=== PATIENT | male | born 1985 | race Caucasian/White ===

== ENCOUNTER 2017-11-14 10:26 | Emergency (ER) | payer OTHER ==
[2017-11-14] MEDS ORDERED: PROPARACAINE 0.5% OPHTH DROPS 15 ML BTL BOTH EYES STA (11:27)
[2017-11-14] MEDS ORDERED: CIPROFLOXACIN 0.3% OPHTH SOLN 5 ML BTL BOTH EYES STA (11:28)
--- NOTE | 2017-11-14 12:15 | ED ---
Eye Problem HPI - General Chief complaint: Eye Problems Stated complaint: Poss [employer] Eye Time Seen by Provider: 11/14/17 11:00 Source: patient, RN notes reviewed, old records reviewed Mode of arrival: ambulatory Limitations: no limitations - History of Present Illness Initial comments: This is a 32 year old female with CC of left eye irritaiton and drainage. Patient reports that he wears contacts, and typically over wears them. 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 HE relates that he has been having irritaiton for 2 days. He has not been wearing contacts since then. Patient denies visual changes, but states that it is slightly blurry due to drainage. Denies pain with bright lights. - Related Data Home Medications Medication Instructions Recorded Confirmed Multivitamins, Thera [Multivitamin 1 tab PO DAILY 11/14/17 11/14/17 (formulary)] Previous Rx's Medication Instructions Recorded Ciprofloxacin Ophth Soln [Cipro 1 drops LEFT EYE Q4HR #1 bottle 11/14/17 Ophth Soln] Allergies Allergy/AdvReac Type Severity Reaction Status Date / Time No Known Allergies Allergy Verified 11/14/17 10:58 Review of Systems ROS Statement: Those systems with pertinent positive or pertinent negative responses have been documented in the HPI. ROS Other: All systems not noted in ROS Statement are negative. Constitutional: Reports: fever. Denies: chills Eyes: Reports: eye pain, eye discharge (left) ENT: Denies: throat pain Respiratory: Denies: cough, dyspnea Cardiovascular: Denies: chest pain Endocrine: Denies: fatigue Genitourinary: Denies: dysuria Musculoskeletal: Denies: back pain Skin: Denies: rash Neurological: Denies: headache Psychiatric: Denies: anxiety Hematological/Lymphatic: Denies: easy bleeding Past Medical History Past Medical History: No Reported History History of Any Multi-Drug Resistant Organisms: None Reported Past Surgical History: No Surgical Hx Reported Past Psychological History: Anxiety Smoking Status: Current every day smoker Past Alcohol Use History: Daily Past Drug Use History: None Reported General Exam - General Exam Comments Initial Comments: This patient is a 32 year old male with CC of left eye irritation. No acute distress. Wearing glasses. Limitations: no limitations General appearance: alert, in no apparent distress Head exam: Present: atraumatic, normocephalic, normal inspection Eye exam: Present: normal appearance, PERRL, EOMI, conjunctival injection (left eye injection and drainage. No pain with EOM or bright lights. ). Absent: scleral icterus, periorbital swelling Pupils: Present: normal accommodation ENT exam: Present: normal exam, mucous membranes moist Neck exam: Present: normal inspection. Absent: tenderness, meningismus, lymphadenopathy Respiratory exam: Present: normal lung sounds bilaterally. Absent: respiratory distress, wheezes, rales, rhonchi, stridor Cardiovascular Exam: Present: regular rate, normal rhythm, normal heart sounds. Absent: systolic murmur, diastolic murmur, rubs, gallop, clicks GI/Abdominal exam: Present: soft, normal bowel sounds. Absent: distended, tenderness, guarding, rebound, rigid Extremities exam: Present: normal inspection, full ROM, normal capillary refill. Absent: tenderness, pedal edema, joint swelling, calf tenderness Back exam: Present: normal inspection Neurological exam: Present: alert, oriented X3, CN II-XII intact Psychiatric exam: Present: normal affect, normal mood Skin exam: Present: warm, dry, intact, normal color. Absent: rash Course Vital Signs 11/14/17 11/14/17 10:51 12:21 Temperature 97.8 F 98 F Pulse Rate 82 74 Respiratory 20 16 Rate Blood Pressure 136/92 145/90 O2 Sat by Pulse 96 98 Oximetry Medical Decision Making - Medical Decision Making 32 year old male with left eye irritation for 2 days. He wears contacts, but has not been wearing them since the irritation. Patient eye was stained with flueorescein. No evidence of foreign body or ulceration. Patient will be started on cipro drops, given referral for opthalmology. Patient advised to continue to avoid wearing contacts for one to 2 weeks until infection is gone. Discussed return parametes. Disposition Clinical Impression: Conjunctivitis, left eye, Contact lens overwear of left eye Disposition: HOME SELF-CARE Condition: Good Instructions: Conjunctivitis (ED) Additional Instructions: Patient advised to use the antibiotic drops within the eye every 4 hours for the next 3-4 days. Follow-up with ophthalmology if symptoms are continuing to persist. Return to emergency department if any alarming signs or symptoms occur. Prescriptions: Ciprofloxacin Ophth Soln [Cipro Ophth Soln] 1 drops LEFT EYE Q4HR #1 bottle Referrals: [facility],Clinic [Primary Care Provider] - 1-2 days Oseas Valdovinos MD [STAFF PHYSICIAN] - 1-2 days Time of Disposition: 12:14
[2017-11-14 12:22] VITALS: BP 145/90; PULSE 74; RESP 16; TEMP 98
== END 2017-11-14 12:42 | disposition home or self-care (01) ==
LOC: EC 10:26
DX: H10.9 Unspecified conjunctivitis (principal); F17.200 Nicotine dependence, unspecified, uncomplicated; R50.9 Fever, unspecified
CPT/HCPCS: 99283

== ENCOUNTER 2018-04-03 20:38 | Emergency (ER) | payer OTHER ==
[2018-04-03] MEDS ORDERED: IBUPROFEN 800 MG TAB PO STA ×2 (20:57→21:11)
[2018-04-03] MEDS ORDERED: DIPH,PERTUS(ACELL)TETVAC-LF 0.5 ML VIAL IM ONE (20:58)
[2018-04-03] MEDS ORDERED: cefTRIAXone 1,000 MG VIAL (IM USE) IM STA (21:11)
[2018-04-03] MEDS ORDERED: HYDROcodone/APAP 5-325MG 1 EACH TAB PO STA (21:19)
--- NOTE | 2018-04-03 21:19 | ED ---
Upper Extremity HPI - General Chief Complaint: Extremity Injury, Upper Stated Complaint: Finger Pain Time Seen by Provider: 04/03/18 20:57 Source: patient Mode of arrival: ambulatory Limitations: no limitations - History of Present Illness Initial Comments: This is a 33yo male who denies PMH who present today for cc of right thumb pain and limited ROM x1day. Pt states that he was working on [employer] with a pair of scissors. When he missed and punctured his right thumb with the scissors. Pt stated that he cleaned the area thoroughly, he stated that there was only a small puncture where the scissors entered just distal to the thumb joint. Since the injury pt noticed increased pain and that he wasnt able to extend at this right thumb. Pt thought that this may subside when the swelling wore off over the night. When pt awoke this morning and continued through his day with continuous pain the right thumb, increased swelling, mild erythema and inability to extend he presented to the ER because he was concerned about tendonous injury. - Related Data Home Medications Medication Instructions Recorded Confirmed Multivitamins, Thera [Multivitamin 1 tab PO DAILY 11/14/17 04/03/18 (formulary)] Previous Rx's Medication Instructions Recorded Cephalexin [Keflex] 500 mg PO Q6HR 3 Days #12 cap 04/03/18 Allergies Allergy/AdvReac Type Severity Reaction Status Date / Time No Known Allergies Allergy Verified 04/03/18 20:49 Review of Systems ROS Statement: Those systems with pertinent positive or pertinent negative responses have been documented in the HPI. ROS Other: All systems not noted in ROS Statement are negative. Past Medical History Past Medical History: No Reported History History of Any Multi-Drug Resistant Organisms: None Reported Past Surgical History: No Surgical Hx Reported Past Psychological History: Anxiety Smoking Status: Current every day smoker Past Alcohol Use History: Daily Past Drug Use History: None Reported General Exam - General Exam Comments Initial Comments: General: The patient is awake and alert, in no distress, and does not appear acutely ill. Eye: Pupils are equal, round and reactive to light, extra-ocular movements are intact. No nystagmus. There is normal conjunctiva bilaterally. No signs of icterus. Ears, nose, mouth and throat: There are moist mucous membranes and no oral lesions. Neck: The neck is supple, there is no tenderness or JVD. Cardiovascular: There is a regular rate and rhythm. No murmur, rub or gallop is appreciated. Respiratory: Lungs are clear to auscultation, respirations are non-labored, breath sounds are equal. No wheezes, stridor, rales, or rhonchi. Musculoskeletal: There is mild erythema extending from small closed puncture wound just distal to PIP joint on the extensor surface of the right thumb. Pt cannot extend thumb at the DIP and PIP joints, no tenderness with passive range of motion. Strength 5/5 with flexion of DIP and PIP joints. Sensation intact. Radial pulses equal bilaterally 2+. Capillary refill <2 seconds. Neurological: A&O x 3. CN II-XII intact, There are no obvious motor or sensory deficits. Coordination appears grossly intact. Speech is normal. Skin: Skin is warm and dry and no rashes or lesions are noted. Psychiatric: Cooperative, appropriate mood & affect, normal judgment. Limitations: no limitations Course Vital Signs 04/03/18 04/03/18 20:46 22:04 Temperature 98.3 F 97.7 F Pulse Rate 87 89 Respiratory 20 18 Rate Blood Pressure 139/85 133/77 O2 Sat by Pulse 97 97 Oximetry Medical Decision Making - Medical Decision Making Pt with right thumb puncture with complaints of decreased ROM. Pt given TDaP due to it not being updated. Puncture is not on the flexor surface and thee are no kanavel signs at this time. Given pt decrease ROM concern for tendonous injury. Dr. Araujo consulted, I spoke to him personally who recommended 2g rocephin IM and keflex upon d/c. He stated pt is to f/u tomorrow morning for evaluation. Pt understood plan and importance of f/u, verbalized understanding of plan. Case discussed with Dr Salomon.XR obtained (-) for fracture or FB. Puncture was cleansed and bandaged. At this time we feel pt is stable for d/c with orthopedic f/u. Pt was not given norco after order because he told the nurse he was riding motorcycle home. Pt given ibuprofen 800 for pain mgmt during visit. Disposition Clinical Impression: Injury of right thumb, Puncture wound of right thumb Disposition: HOME SELF-CARE Condition: Good Instructions: Puncture Wound (ED) Additional Instructions: Please use medication as discussed. Please follow-up FIRST THING TOMORROW MORNING WITH DR. ARAUJO DISCUSSED. Please return to emergency room if the symptoms increase or worsen or for any other concerns. Prescriptions: Cephalexin [Keflex] 500 mg PO Q6HR 3 Days #12 cap Is patient prescribed a controlled substance at d/c from ED?: No Referrals: None,Stated [Primary Care Provider] - 1-2 days Kanu Araujo MD [STAFF PHYSICIAN] - 1-2 days Time of Disposition: 21:25
--- NOTE | 2018-04-03 21:38 | XR ---
EXAMINATION TYPE: XR hand limited RT DATE OF EXAM: 04/03/2018 COMPARISON: NONE HISTORY: Puncture wound. Thumb pain. TECHNIQUE: 2 views FINDINGS: I see no fracture nor dislocation. Thumb appears intact. There is no sign of a radiopaque f oreign body. IMPRESSION: No fracture or soft tissue foreign body seen..
[2018-04-03 22:08] VITALS: BP 133/77; PULSE 89; RESP 18; TEMP 97.7
== END 2018-04-03 22:08 | disposition home or self-care (01) ==
LOC: EC 20:38
DX: S61.031A Puncture wound without foreign body of right thumb without damage to nail, initial encounter (principal); F17.200 Nicotine dependence, unspecified, uncomplicated; W27.2XXA Contact with scissors, initial encounter; Y92.009 Unspecified place in unspecified non-institutional (private) residence as the place of occurrence of the external cause
CPT/HCPCS: 73120; 90715; 99283; 90471; 96372; J0696

== ENCOUNTER 2020-05-10 08:53 | Emergency (ER) | payer OTHER ==
[2020-05-10 08:59] VITALS: BP 158/97; PULSE 70; RESP 18; TEMP 97.9
[2020-05-10] MEDS ORDERED: PROPARACAINE 0.5% OPHTH DROPS 15 ML BTL LEFT EYE STA (09:00)
[2020-05-10] MEDS ORDERED: FLUORESCEIN STRIPS 1 MG STRIP LEFT EYE ONE (09:00)
[2020-05-10] MEDS ORDERED: TOBRAMYCIN 0.3% OPHTH DROPS 5 ML BTL LEFT EYE STA (09:10)
--- NOTE | 2020-05-10 09:12 | ED ---
Eye Problem HPI - General Chief complaint: Eye Problems Stated complaint: eye injury Time Seen by Provider: 05/10/20 09:00 Source: patient, RN notes reviewed Mode of arrival: ambulatory Limitations: no limitations - History of Present Illness Initial comments: 35-year-old male presents emergency Department chief complaint left eye irritation. Patient states started yesterday. Patient did take out his contacts yesterday because his eye was irritated. Patient states his been some tearing some photophobia. 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 Patient denies any other complaints. Patient states his tetanus is up-to-date. - Related Data Home Medications Medication Instructions Recorded Confirmed Multivitamins, Thera [Multivitamin 1 tab PO DAILY 11/14/17 04/03/18 (formulary)] Previous Rx's Medication Instructions Recorded Cephalexin [Keflex] 500 mg PO Q6HR 3 Days #12 cap 04/03/18 Allergies Allergy/AdvReac Type Severity Reaction Status Date / Time No Known Allergies Allergy Verified 05/10/20 08:59 Review of Systems ROS Statement: Those systems with pertinent positive or pertinent negative responses have been documented in the HPI. ROS Other: All systems not noted in ROS Statement are negative. Past Medical History Past Medical History: No Reported History History of Any Multi-Drug Resistant Organisms: None Reported Past Surgical History: Orthopedic Surgery Additional Past Surgical History / Comment(s): Left leg sx Past Psychological History: Anxiety Smoking Status: Current every day smoker Past Alcohol Use History: Daily Past Drug Use History: None Reported General Exam Limitations: no limitations General appearance: alert, in no apparent distress Head exam: Present: atraumatic, normocephalic, normal inspection Eye exam: Present: PERRL, EOMI, conjunctival injection (Mild left), other (Patient had pain relief with proparacaine drops. Fluorescein dye and Wood's lamp were used there is a noted central corneal uptake no foreign body noted no deep ulceration). Absent: normal appearance, scleral icterus, periorbital swelling ENT exam: Present: normal exam, normal oropharynx, mucous membranes moist Neck exam: Present: normal inspection, full ROM. Absent: tenderness, meningismus, lymphadenopathy Respiratory exam: Present: normal lung sounds bilaterally. Absent: respiratory distress, wheezes, rales, rhonchi, stridor Cardiovascular Exam: Present: regular rate, normal rhythm, normal heart sounds. Absent: systolic murmur, diastolic murmur, rubs, gallop, clicks Course Vital Signs 05/10/20 08:53 Temperature 97.9 F Pulse Rate 70 Respiratory 18 Rate Blood Pressure 158/97 O2 Sat by Pulse 98 Oximetry Medical Decision Making - Medical Decision Making Patient has corneal abrasion versus early ulcer patient was started on Tobrex eyedrops patient's tetanus is up-to-date patient will follow-up with Dr. Andrew on-call ophthalmology return parameters were discussed. Patient instructed not to wear his contacts for 1 week. Disposition Clinical Impression: Corneal abrasion of left eye due to contact lens Disposition: HOME SELF-CARE Condition: Stable Instructions (If sedation given, give patient instructions): Corneal Abrasion (ED) Additional Instructions: Apply 1 drop to the left eye every 2 hours for the first 24 and then every 4 for the next 6 days Please return to the Emergency Department if symptoms worsen or any other concerns. Is patient prescribed a controlled substance at d/c from ED?: No Referrals: None,Stated [Primary Care Provider] - 1-2 days Darrick Andrew MD [STAFF PHYSICIAN] - 1-2 days Time of Disposition: 09:11
== END 2020-05-10 09:25 | disposition home or self-care (01) ==
LOC: EC 08:53
DX: H18.822 Corneal disorder due to contact lens, left eye (principal); F17.200 Nicotine dependence, unspecified, uncomplicated
CPT/HCPCS: 99283

== ENCOUNTER → 2021-07-04 | Outpatient (CLI) | payer OTHER ==
[2021-07-04 15:08] LABS: % Iron Saturation 42.15 (15.00-50.00); African American GFR (CKD) 133.2 (60.0-200.0); Albumin 4.7 g/dL (3.8-4.9); Albumin/Globulin Ratio 2.24 (1.60-3.17); BUN/Creat Ratio 17.75 Ratio (12.00-20.00); Blood Urea Nitrogen 14.2 mg/dL (9.0-27.0); Calcium 9.4 mg/dL (8.7-10.3); Folate, Serum 17.7 ng/mL (4.40-31.00); Globulin 2.1 g/dL (1.6-3.3); Non-African American GFR(CKD) 114.9 (60.0-200.0); Potassium 4.2 mmol/L (3.5-5.5); Prostate Specific Antigen 0.9 ng/mL (0.00-2.50); T4, Free (Free Thyroxine) 1.16 ng/dL (0.800-1.800); Total Bilirubin 0.6 mg/dL (0.30-1.20); Total Protein 6.8 g/dL (6.2-8.2)
[2021-07-04 15:36] LABS: Basophils # (A) 0.09 X 10*3/uL (0.00-0.10); Basophils % (A) 1.2 %; Eosinophils # (A) 0.24 X 10*3/uL (0.04-0.35); Eosinophils % (A) 3.3 %; HCT 44.6 % (39.6-50.0); Lymphocytes % (A) 31.3 %; MCH 29.9 pg (27.0-32.0); MCHC 33.6 g/dL (32.0-37.0); Mean Platelet Volume 9.6 fL (9.5-12.2); Monocytes # (A) 0.62 X 10*3/uL (0.20-1.00); Monocytes % (A) 8.4 %; Neutrophils # (A) 4.07 X 10*3/uL (1.80-7.70); Neutrophils % (A) 55.5 %; Platelet Count 398 X 10*3/uL (140-440); RBC 5.01 X 10*6/uL (4.40-5.60); RDW 14.3 % (11.5-14.5); WBC 7.34 X 10*3/uL (4.50-10.00)
== END | disposition home or self-care (01) ==
LOC: LABWHC1 09:49
PROVIDERS: ATTEND Internal Medicine Endocrinology, Diabetes & Metabolism
DX: R68.82 Decreased libido (principal); R53.83 Other fatigue
CPT/HCPCS: 36415; 80053; 82040; 82306; 82607; 82728; 82746; 83036; 83540; 83550; 84153; 84270; 84403; 84439; 84443; 84466; 85025

== ENCOUNTER → 2021-08-18 | Outpatient (CLI) | payer BC ==
--- NOTE | 2021-08-18 12:54 | XR ---
EXAMINATION TYPE: XR chest 2V DATE OF EXAM: 08/18/2021 COMPARISON: NONE HISTORY: Shortness of breath. TECHNIQUE: Frontal and lateral views of the chest are obtained. FINDINGS: There is no focal air space opacity, pleural effusion, or pneumothorax seen. The cardiac silhouette size is within normal limits. The osseous structures are intact. IMPRESSION: No acute cardiopulmonary process.
[2021-08-18 19:03] LABS: Basophils # (A) 0.07 X 10*3/uL (0.00-0.10); Basophils % (A) 1.2 %; Eosinophils # (A) 0.16 X 10*3/uL (0.04-0.35); Eosinophils % (A) 2.7 %; HCT 45.5 % (39.6-50.0); HGB 14.9 g/dL (13.0-17.0); Lymphocytes # (A) 2.14 X 10*3/uL (0.90-5.00); Lymphocytes % (A) 36.5 %; MCH 29.1 pg (27.0-32.0); MCHC 32.7 g/dL (32.0-37.0); MCV 88.9 fL (80.0-97.0); Mean Platelet Volume 9.6 fL (9.5-12.2); Monocytes # (A) 0.53 X 10*3/uL (0.20-1.00); Neutrophils # (A) 2.95 X 10*3/uL (1.80-7.70); Neutrophils % (A) 50.3 %; Platelet Count 391 X 10*3/uL (140-440); RBC 5.12 X 10*6/uL (4.40-5.60); RDW 13.6 % (11.5-14.5); WBC 5.87 X 10*3/uL (4.50-10.00)
[2021-08-18 19:44] LABS: ALT 41 U/L (10-49); AST 21 U/L (14-35); African American GFR (CKD) 133.2 (60.0-200.0); Albumin 4.6 g/dL (3.8-4.9); Albumin/Globulin Ratio 2.19 (1.60-3.17); Alkaline Phosphatase 59 U/L (41-126); BUN/Creat Ratio 15.25 Ratio (12.00-20.00); Blood Urea Nitrogen 12.2 mg/dL (9.0-27.0); Calcium 9.6 mg/dL (8.7-10.3); Carbon Dioxide 26.1 mmol/L (20.0-27.5); Chloride 105 mmol/L (96-109); Chol/HDL Ratio 4.78 Ratio; Creatine Kinase 72 U/L (35-257); Globulin 2.1 g/dL (1.6-3.3); Glucose 106 mg/dL (70-110); Non-African American GFR(CKD) 114.9 (60.0-200.0); Potassium 4.6 mmol/L (3.5-5.5); Sodium 140 mmol/L (135-145); Total Protein 6.7 g/dL (6.2-8.2); Uric Acid 6.5 mg/dL (3.7-8.7); VLDL Calculation 15.88 mg/dL (5.00-40.00)
[2021-08-18 20:27] LABS: C Reactive Protein <0.30 mg/dL (0.00-0.80)
[2021-08-18 20:55] LABS: Erythrocyte Sedimentation Rate 4 mm/Hr (0-15)
[2021-08-19 05:06] LABS: DNA Double-Stranded NEGATIVE (NEGATIVE)
== END | disposition home or self-care (01) ==
LOC: LABWHC1 11:01
PROVIDERS: ATTEND Internal Medicine
DX: D64.9 Anemia, unspecified (principal); I10 Essential (primary) hypertension; E87.8 Other disorders of electrolyte and fluid balance, not elsewhere classified; E78.5 Hyperlipidemia, unspecified; E05.90 Thyrotoxicosis, unspecified without thyrotoxic crisis or storm; E55.9 Vitamin D deficiency, unspecified; R06.02 Shortness of breath
CPT/HCPCS: 36415; 71046; 80053; 80061; 82306; 82550; 84443; 84550; 85025; 85652; 86038; 86140; 86225

== ENCOUNTER → 2021-10-05 | Outpatient (CLI) | payer BC ==
[2021-10-06 12:28] LABS: Alt. alternata IgE Class CLASS 0; Alternaria alternata IgE <0.10 kU/L (<0.10); Asperg. fumagatus IgE <0.10 kU/L (<0.10); Asperg. fumagatus IgE Class CLASS 0; Candida albicans IgE Class CLASS 0; Clad herbarum IgE <0.10 kU/L (<0.10); Clad herbarum IgE Class CLASS 0; Latex IgE Class CLASS 0; Mucor racemosus IgE <0.10 kU/L (<0.10); Mucor racemosus IgE Class CLASS 0; Penicillium chrysogenum IgE <0.10 kU/L (<0.10); Penicillium chrysogenum IgE Cl CLASS 0
== END | disposition home or self-care (01) ==
LOC: LABWHC1 15:32
PROVIDERS: ATTEND Internal Medicine Sleep Medicine
DX: B44.81 Allergic bronchopulmonary aspergillosis (principal)
CPT/HCPCS: 36415; 82785; 86001; 86003; 86606; 86609

== ENCOUNTER → 2021-12-01 | Outpatient (CLI) | payer BC ==
[2021-12-01 22:58] LABS: Follicle Stimulating Hormone 7.3 mIU/mL; Luteinizing Hormone 8.4 mIU/mL
== END | disposition home or self-care (01) ==
LOC: LABWHC1 16:06
PROVIDERS: ATTEND Internal Medicine Endocrinology, Diabetes & Metabolism
DX: R68.82 Decreased libido (principal)
CPT/HCPCS: 36415; 83001; 83002; 84402; 84403

== ENCOUNTER → 2022-01-20 | Outpatient (CLI) | payer BC ==
--- NOTE | 2022-01-20 13:36 | CT ---
EXAMINATION TYPE: CT chest w con DATE OF EXAM: 01/20/2022 COMPARISON: Radiograph 113 HISTORY: 36-year-old male J84.170 Interstitial lung disease with progressive fibrotic phenot TECHNIQUE: Contiguous axial scanning of the chest after the administration of 100 mL of Isovue 300. Coronal/sagittal reconstructions performed. CT DLP: 636.9mGycm. Automatic exposure control utilized for a dose reduction. FINDINGS: Heart normal size without pericardial effusion. Aortic root is borderline ectatic at 2.6 cm. Conventional arch was a branching anatomy. No thoracic lymphadenopathy by CT size criteria. Moderate bilateral gynecomastia. Lungs show mild dependent atelectasis posteriorly. Additional strandy atelectasis at the lung bases. No consolidation or pleural effusion. Visualized upper abdomen shows no gross abnormality. Bones: No osseous destructive process. IMPRESSION: Mild dependent atelectasis and additional strandy bibasilar atelectasis. Otherwise, no acute pulmonar y process.
== END | disposition home or self-care (01) ==
LOC: RADCTMAIN 09:36
PROVIDERS: ATTEND Internal Medicine Sleep Medicine
DX: J84.170 Interstitial lung disease with progressive fibrotic phenotype in diseases classified elsewhere (principal)
CPT/HCPCS: 71260; Q9967

== ENCOUNTER → 2022-02-03 | Outpatient (CLI) | payer BC ==
--- NOTE | 2022-02-03 13:13 | CT ---
EXAMINATION TYPE: CT abdomen pelvis w con DATE OF EXAM: 02/03/2022 COMPARISON: NONE HISTORY: 36-year-old male R10.84, abdominal pain, umbilical drainage x 12 years TECHNIQUE: Contiguous axial scanning of the abdomen and pelvis following administration of 100 ml Iso rahul 300 IV contrast. Delayed images through the kidneys and coronal/sagittal reconstructions perform ed. CT DLP: 1323.7 mGycm Automated exposure control for dose reduction was used. FINDINGS: Heart normal size without pericardial effusion. Strandy atelectasis lower lungs. No focal liver lesion or biliary ductal dilatation. Portal venous system is patent. Gallbladder, adrenal glands, kidneys, spleen, and pancreas within normal limits. Scattered prominent fluid-filled small bowel loops especially along the left side of the abdomen and lower abdomen. No dilated small bowel, free fluid, or free air. Scattered nonenlarged left mid abdomi nal mesenteric nodes measuring up to 5 mm. No retroperitoneal lymphadenopathy. Normal appendix. Mild stool burden. No pericolonic inflammatory change. There is some thickening at the umbilicus but no well-defined fluid collection identified. No fistulo us tract is identified along the urachus to the bladder. Bladder partially distended. Prostate gland measures 4.2 cm wide. Bilateral vasectomy clips. No abnor mal fluid collection in the pelvis or pelvic lymphadenopathy. Bones: Suspect tracks from prior surgical hardware in the left femur. No osseous destructive process. IMPRESSION: 1. SOME MILDLY PROMINENT FLUID-FILLED SMALL BOWEL LOOPS LEFT SIDE OF THE ABDOMEN AND LOWER ABDOMEN. F INDINGS MAY BE TRANSIENT OR REPRESENT A MILD ENTERITIS. 2. SLIGHT THICKENING ALONG THE UMBILICUS POSSIBLY DUE TO CHRONIC INFLAMMATION BUT NO WELL-DEFINED FLU ID COLLECTION. NO URACHAL REMNANT IS CLEARLY IDENTIFIED. 3. MILD PROSTATOMEGALY. BILATERAL VASECTOMY CLIPS.
== END | disposition home or self-care (01) ==
LOC: RADCTMAIN 11:22
PROVIDERS: ATTEND Student in an Organized Health Care Education/Training Program
DX: N40.1 Benign prostatic hyperplasia with lower urinary tract symptoms (principal)
CPT/HCPCS: 74177; Q9967

== ENCOUNTER → 2022-04-18 | Outpatient (CLI) | payer BC ==
[2022-04-18 18:24] LABS: Basophils # (A) 0.07 X 10*3/uL (0.00-0.10); Eosinophils # (A) 0.18 X 10*3/uL (0.04-0.35); Eosinophils % (A) 2.6 %; HCT 44.9 % (39.6-50.0); HGB 15.3 g/dL (13.0-17.0); Immature Grans, Automated 0.3 %; Lymphocytes % (A) 33.2 %; MCH 29.7 pg (27.0-32.0); MCHC 34.1 g/dL (32.0-37.0); Mean Platelet Volume 9.5 fL (9.5-12.2); Monocytes # (A) 0.61 X 10*3/uL (0.20-1.00); Monocytes % (A) 8.8 %; NRBC Per 100 WBC 0 /100 WBCS (0.0-0.0); Neutrophils # (A) 3.74 X 10*3/uL (1.80-7.70); Neutrophils % (A) 54.1 %; Platelet Count 356 X 10*3/uL (140-440); RBC 5.16 X 10*6/uL (4.40-5.60); RDW 14.2 % (11.5-14.5); WBC 6.92 X 10*3/uL (4.50-10.00)
[2022-04-18 19:15] LABS: Anion Gap 9.1 mmol/L (10.00-18.00); Blood Urea Nitrogen 9.6 mg/dL (9.0-27.0); Carbon Dioxide 27.9 mmol/L (20.0-27.5); Luteinizing Hormone 5.9 mIU/mL; Potassium 4.3 mmol/L (3.5-5.5)
[2022-04-18 19:16] LABS: African American GFR (CKD) 132.3 (60.0-200.0); Albumin 4.6 g/dL (3.8-4.9); Calcium 9.4 mg/dL (8.7-10.3); Follicle Stimulating Hormone 7.8 mIU/mL; Globulin 2.3 g/dL (1.6-3.3); Non-African American GFR(CKD) 114.1 (60.0-200.0); Total Bilirubin 0.5 mg/dL (0.30-1.20); Total Protein 6.9 g/dL (6.2-8.2)
== END | disposition home or self-care (01) ==
LOC: LABWHC1 11:02
PROVIDERS: ATTEND Internal Medicine Endocrinology, Diabetes & Metabolism
DX: R68.82 Decreased libido (principal)
CPT/HCPCS: 36415; 80053; 83001; 83002; 84270; 84402; 84403; 85025

== ENCOUNTER → 2022-05-10 | Outpatient (CLI) | payer BC ==
--- NOTE | 2022-05-10 16:07 | P.SLEEP ---
History of Present Illness DATE: 05/10/2022 CONSULTATION/NEW PATIENT EVALUATION HISTORY OF PRESENT ILLNESS/SLEEP-WAKE EVALUATION: 37 year old gentleman had been evaluated in the sleep center for possible obstructive sleep apnea hypopnea syndrome. Patient has history of obstructive sleep apnea hypopnea syndrome diagnosed 3-1/2 years ago in another institution. According to patient he has mild sleep apnea with apnea-hypopnea index around 5. She was started on treatment with CPAP and he continued to use CPAP equipment. I checked his CPAP unit. This is [employer] dream station 1 unit, which have been on the recall for about 1-1/2 years. Patient did not know about the recall. Pressure in the unit 5-15 with average pressure 9.8 cm of water. Patient is using it quite short time during the night less than 4 hours. Apnea-hypopnea index reading is 1.8 which is normal. SLEEP SCHEDULE: Usually sleep schedule on weekdays from 10 PM until 4 AM, during days off from 10-11 PM until 5 AM.. FALLING ASLEEP Sometimes patient has problems with falling asleep, although no TV in bedroom]. DURING SLEEP:Patient wakes up from sleep up to 5 times without nocturia. ] No history of hypnogogical hallucinations, sleep paralysis, or cataplexy. DURING THE DAY/WAKE STATE In the morning patient wake up tired, has difficulties to pay attention, falling asleep during the day. Positive history of memory problems, concentration, irritability, depression, anxiety, sexual dysfunction]. [place] sleepiness scale i significantly increased to 16] Patient may take 1 nap during the day]. PAST MEDICAL HISTORY Asthma, ALLERGY, low testosterone level]. PAST SURGICAL HISTORY Right thumb tendon surgery]. MEDICATIONS Zyrtec, albuterol, testosterone supplement]. SOCIAL HISTORY Positive for smoking for 10 years about half pack a day quit, alcohol consumption occasional. FAMILY HISTORY:Diabetes mellitus]. REVIEW OF SYSTEMS:Multiple awakenings from sleep, significant excessive daytime sleepiness]. No fevers. No double vision. No recent chest pain. No shortness of breath. No abdominal pain. No bleeding episodes. No blood in urine. No seizure episodes. PHYSICAL EXAMINATION: GENERAL: A pleasant patient without any distress. VITAL SIGNS: B 132/87 , H 75 , R 16 , weigh 235 pounds, heigh 5 ]helen 10 ]inches, body mass inde 33.7 . HEENT: PERRLA, EOMI. Evaluation of oropharynx showed tongue protrudes midline, low position of soft palate Mallampat 2-3. Wide pillars. Short distance between soft palate and posterior pharyngeal wall]. NECK: Supple. No JVD. Thyroid is not palpable 17-1/4 inches in circumference. LUNGS: Clear to percussion and to auscultation. Good air exchange. No wheezing or rhonchi. HEART: S1, S2 regular. No murmurs, gallops or rubs. ABDOMEN: Soft and nontender. Bowel sounds are present. No organomegaly appreciated. EXTREMITIES: No clubbing or cyanosis. COUNSELOR AIDE: Awake, alert, and oriented x3. Cranial nerves 2 to 7 intact. There is no fasciculation or atrophy noted. No focal deficits observed. ASSESSMENT: 1 History of obstructive sleep apnea diagnosed 3-1/2 years ago in another institution, possibly mild according to patient. Patient is on treatment with CPAP not regularly]. CPAP unit is dream station 1 which is on recall. Small oropharyngeal air space, multiple awakenings from sleep, wide neck 17-1/4 inches in circumference. Obstructive sleep apnea-hypopnea syndrome 2 Significant excessive daytime sleepiness with [place] Sleepiness Scale 16 dictate necessity to include hypersomnia and narcolepsy differential diagnosis.]. 3 asthma]. 4 Headaches]. 5 ALLERGY]. 6 History of low testosterone level]. 7 History of sinusitis]. 8. [].Status post right thumb tendon surgery PLAN: 1. Home sleep apnea test to check patient breathing during the sleep at the present time. 2. CPAP unit should be replaced. This is dream station 1 from [employer] which is on recall. Patient will contact [employer] to replace unit. 3. Preferable position during sleep on the side. 4. No driving if patient feels any sleepiness. Patient is aware of civil and criminal liability for unsafe driving. 5. Sleep hygiene with regular sleep time for at least 7.5-8 hours. 6. Watching weight. 7. Following plan after reading home sleep apnea test. Thank you very much for referring this patient for consultation. Sincerely, Armani Jensen MD, PhD, FAASM. Diplomat of [employer], Sleep Medicine Board by [employer] [facility] [employer] Supervisor of [facility] [place] Past Medical History Past Medical History: No Reported History History of Any Multi-Drug Resistant Organisms: None Reported Past Surgical History: Orthopedic Surgery Additional Past Surgical History / Comment(s): Left leg sx Past Psychological History: Anxiety Smoking Status: Current every day smoker Past Alcohol Use History: Daily Past Drug Use History: None Reported Medications and Allergies Home Medications Medication Instructions Recorded Confirmed Type Multivitamins, Thera [Multivitamin 1 tab PO DAILY 11/14/17 04/03/18 History (formulary)] Cephalexin [Keflex] 500 mg PO Q6HR 3 Days #12 cap 04/03/18 Rx Tobramycin 0.3% Ophth Soln [Tobrex 1 - 2 drop LEFT EYE Q4H #1 bottle 05/10/20 Rx 0.3% Ophth Soln] Allergies Allergy/AdvReac Type Severity Reaction Status Date / Time No Known Allergies Allergy Verified 05/10/20 08:59 Sleep Note - Sleep Note Sleep Note: Temperature: Pulse Rate: Respiratory Rate: Blood Pressure: SpO2: Height: Weight: BMI: Neck Circumference:
== END | disposition home or self-care (01) ==
LOC: SLEEP 14:48
PROVIDERS: ATTEND Internal Medicine
DX: G47.33 Obstructive sleep apnea (adult) (pediatric) (principal); J45.909 Unspecified asthma, uncomplicated; R51.9 Headache, unspecified
CPT/HCPCS: 99211

== ENCOUNTER → 2022-07-27 | Outpatient (CLI) | payer BC ==
--- NOTE | 2022-07-27 11:21 | P.PN ---
Subjective DATE: 07/27/2022 FOLLOW UP VISIT. Patient with obstructive sleep apnea hypopnea syndrome return to sleep center for follow-up visit. Recently patient had sleep study which documented obstructive sleep apnea hypopnea syndrome. Patient was initiated on PAP therapy and today is first visit after treatment was started. Patient was able to use PAP equipment every night for the whole night. The patient does not have significant problems with the mask, PAP pressure and humidification. Acton sleepiness scale is still in high range of 17. Patient sleeps only about 45 hours per night, has young child. I checked information from PAP unit. PAP unit pressure 5-15, average 6.7 cm H2O. Usage is 100 % for more then 4 hours, average 4.32 hours per night. Mask feet 98%, which is great. Apnea Hypopnea Index is 0.2, which is normal. MEDICATIONS:1. Zyrtec 2. Albuterol 3. Testosterone supplement During physical exam: GENERAL: A pleasant patient without any distress. VITAL SIGNS: BP 147/87, HR 80, RR 16 , weight 230, temperature 97.8, oxygen saturation at room air 97 . HEENT: PERRLA, EOMI. . NECK: Supple. No JVD. LUNGS: Clear to percussion and to auscultation. Good air exchange. No wheezing or rhonchi. HEART: S1, S2 regular. ABDOMEN: Soft and nontender.[] EXTREMITIES: No clubbing or cyanosis. SUGARCANE RESEARCH TECHNICIAN: Awake, alert, and oriented x3. No focal deficit. Impressions: 1. Obstructive sleep apnea-hypopnea syndrome. Patient demonstrated great c ompliance with treatment, benefiting from treatment. 2. Excessive daytime sleepiness with Acton Sleepiness Scale 17. Most probably secondary to insufficient amount of sleep at the present time.. 3. Asthma. 4. History of sinusitis. 5. History of low testosterone level. 6. Status post right thumb tendon surgery. Plan: 1. Continue using PAP equipment every night for the whole night. 2. To change air filter at least 1-2 times per month. 3. PAP unit should stay lower then position of the head. 4. Advised patient to remove all remaining water from humidifier canister daily and make it dry after each usage. Refill canister with fresh distilled water before each usage. 5. Sleep hygiene with regular time in bed for at least 8 hours. 6. Precautions related to driving. No driving if feel any sleepiness. 7. I will maintain prescription for PAP supplies including mask, tube, filters. 8. Follow up visit in 6 months or earlier if patient has any problems. 9. Watching weight. Thank you very much for allowing me to participate in the management of your patient. Armani Jensen MD, PhD, FAASM. Diplomat of [place] [employer], Sleep Medicine Board by [place] [employer] Multi Purpose Machine Operator of [facility]
== END ==
LOC: SLEEP 10:44
PROVIDERS: ATTEND Internal Medicine
DX: G47.33 Obstructive sleep apnea (adult) (pediatric) (principal); J45.909 Unspecified asthma, uncomplicated; F17.200 Nicotine dependence, unspecified, uncomplicated; Z96.691 Finger-joint replacement of right hand; Z87.09 Personal history of other diseases of the respiratory system; Z86.39 Personal history of other endocrine, nutritional and metabolic disease; Z99.89 Dependence on other enabling machines and devices
CPT/HCPCS: 99212

== ENCOUNTER → 2022-08-18 | Outpatient (CLI) | payer BC ==
[2022-08-18 23:07] LABS: Basophils # (A) 0.09 X 10*3/uL (0.00-0.10); Basophils % (A) 1.1 %; Eosinophils # (A) 0.24 X 10*3/uL (0.04-0.35); HCT 44.5 % (39.6-50.0); HGB 14.7 g/dL (13.0-17.0); Immature Grans, Automated 0.2 %; Lymphocytes # (A) 3.06 X 10*3/uL (0.90-5.00); Lymphocytes % (A) 37.7 %; MCH 29.5 pg (27.0-32.0); MCV 89.2 fL (80.0-97.0); Mean Platelet Volume 9.8 fL (9.5-12.2); Monocytes # (A) 0.59 X 10*3/uL (0.20-1.00); Monocytes % (A) 7.3 %; NRBC Per 100 WBC 0 /100 WBCS (0.0-0.0); Neutrophils # (A) 4.12 X 10*3/uL (1.80-7.70); Neutrophils % (A) 50.7 %; Platelet Count 372 X 10*3/uL (140-440); RBC 4.99 X 10*6/uL (4.40-5.60); RDW 14.5 % (11.5-14.5); WBC 8.12 X 10*3/uL (4.50-10.00)
[2022-08-18 23:24] LABS: African American GFR (CKD) 124.3 (60.0-200.0); Albumin 4.4 g/dL (3.8-4.9); Albumin/Globulin Ratio 2.13 (1.60-3.17); Anion Gap 11.9 mmol/L (10.00-18.00); BUN/Creat Ratio 10.69 Ratio (12.00-20.00); Blood Urea Nitrogen 9.7 mg/dL (9.0-27.0); Calcium 9.3 mg/dL (8.7-10.3); Follicle Stimulating Hormone 7.1 mIU/mL; Globulin 2.1 g/dL (1.6-3.3); Luteinizing Hormone 5.9 mIU/mL; Non-African American GFR(CKD) 107.3 (60.0-200.0); Total Bilirubin 0.6 mg/dL (0.30-1.20); Total Protein 6.5 g/dL (6.2-8.2)
== END | disposition home or self-care (01) ==
LOC: LABWHC1 16:21
PROVIDERS: ATTEND Internal Medicine
DX: R68.82 Decreased libido (principal)
CPT/HCPCS: 36415; 80053; 83001; 83002; 84270; 84403; 85025

== ENCOUNTER 2022-08-31 11:08 | Day surgery (SDC) | payer BC ==
--- NOTE | 2022-08-31 08:48 | P.GSHP ---
History of Present Illness H&P Date: 08/31/22 CHIEF COMPLAINT: Ventral hernia with urachal cyst HISTORY OF PRESENT ILLNESS: The patient is a 37-year-old male presents with a history of swelling and pain along the abdomen from a hernia of the abdomen with urachal cyst. Symptoms have been present for over 6 months. Now he presents for surgical intervention. PAST MEDICAL HISTORY: Please see list. PAST SURGICAL HISTORY: Please see list. MEDICATIONS: Please see list. ALLERGIES: Please see list. SOCIAL HISTORY: No illicit drug use FAMILY HISTORY: No reports of Crohn disease or ulcerative colitis. REVIEW OF ORGAN SYSTEMS: CONSTITUTIONAL: No reports of fevers or chills. No reports of weight loss despite prior attempts. GI: Denies any blood in stools or constipation. PHYSICAL EXAM: VITAL SIGNS: Stable GENERAL: Well-developed pleasant male in no acute distress. HEENT: No scleral icterus. Extraocular movements grossly intact. Moist buccal mucosa. NECK: Supple without lymphadenopathy. CHEST: Unlabored respirations. Equal bilateral excursions. CARDIOVASCULAR: Regular rate and rhythm. Distal 2+ pulses. ABDOMEN: Soft, nondistended. Palpable defect of the abdomen. No peritoneal signs. MUSCULOSKELETAL: No clubbing, cyanosis, or edema. ASSESSMENT: 1. Ventral hernia with urachal cyst PLAN: 1. Recommend proceeding with robotic excision of urachal cyst with umbilical hernia repair which was described. Placement of mesh was reviewed as well. 2. Benefits and risks of surgical intervention was discussed including possibility of open technique. 3. DVT prophylaxis. 4. Antibiotic prophylaxis. 5. Non narcotic pain management including abdominal wall block described 6. Blood sugar glucose described. 7. Weight loss management described. Past Medical History Past Medical History: Asthma, Sleep Apnea/CPAP/BIPAP Additional Past Medical History / Comment(s): ventral hernia, fluid coming out of umbilicus.served in [place], uses cpap. History of Any Multi-Drug Resistant Organisms: None Reported Past Surgical History: Orthopedic Surgery Additional Past Surgical History / Comment(s): Left leg repair for fx. ( full Body cast) repair of tendon in rt thumb. Past Anesthesia/Blood Transfusion Reactions: No Reported Reaction Smoking Status: Former smoker - Past Family History Father Family Medical History: Diabetes Mellitus Mother Family Medical History: Diabetes Mellitus Medications and Allergies Home Medications Medication Instructions Recorded Confirmed Type Multivitamins, Thera [Multivitamin 1 tab PO DAILY 11/14/17 08/28/22 History (formulary)] Albuterol Inhaler [Ventolin Hfa 2 puff INHALATION Q6H PRN 08/28/22 08/28/22 History Inhaler] Aspirin 81 mg PO DAILY 08/28/22 08/28/22 History clomiPHENE citrate [Clomid] 50 mg PO MOFR 08/28/22 08/28/22 History Allergies Allergy/AdvReac Type Severity Reaction Status Date / Time No Known Allergies Allergy Verified 08/28/22 08:42
[~2022-08-31 11:08] MED LIST: ACETAMINOPHEN TAB 500 MG TAB PO STA; DEXAMETHASONE SOD PHOSPHATE 4 MG/ML 1 ML VIAL IV ONE; GABAPENTIN 300 MG CAP PO STA; HEPARIN SODIUM,PORCINE/PF 5,000 UNIT/0.5 ML SYRINGE SQ PRN; HYDROmorphone 0.5 MG/0.5 ML SYRINGE IVP PRN; LACTATED RINGERS 1,000 ML IV SCH; MIDAZOLAM 2 MG/2 ML VIAL IV PRN; ONDANSETRON 4 MG/2 ML VIAL IVP ONE; SCOPOLAMINE 1 MG/72 HR PATCH TRANSDERM ONE; SCOPOLAMINE 1 MG/72 HR PATCH TRANSDERM STA
[2022-08-31 12:26] LABS: Basophils # (A) 0.1 k/uL (0-0.2); Basophils % (A) 1 %; Eosinophils # (A) 0.1 k/uL (0-0.7); Eosinophils % (A) 2 %; HCT 42.4 % (39.0-53.0); HGB 14.6 gm/dL (13.0-17.5); Lymphocytes # (A) 2.2 k/uL (1.0-4.8); Lymphocytes % (A) 33 %; MCH 29.7 pg (25.0-35.0); MCHC 34.5 g/dL (31.0-37.0); MCV 86.1 fL (80.0-100.0); Mean Platelet Volume 7.1; Monocytes # (A) 0.4 k/uL (0-1.0); Monocytes % (A) 6 %; Neutrophils # (A) 3.8 k/uL (1.3-7.7); Neutrophils % (A) 56 %; Platelet Count 316 k/uL (150-450); RBC 4.93 m/uL (4.30-5.90); RDW 14.1 % (11.5-15.5); WBC 6.8 k/uL (3.8-10.6)
[2022-08-31 12:38] LABS: ALT 32 U/L (4-49); AST 29 U/L (17-59); African American GFR (CKD) >90 (>60 ml/min/1.73 sqM); Albumin 4.1 g/dL (3.5-5.0); Alkaline Phosphatase 46 U/L (38-126); Anion Gap 5 mmol/L; Blood Urea Nitrogen 11 mg/dL (9-20); Calcium 8.7 mg/dL (8.4-10.2); Carbon Dioxide 28 mmol/L (22-30); Chloride 106 mmol/L (98-107); Glucose 100 mg/dL (74-99); Non-African American GFR(CKD) >90 (>60 ml/min/1.73 sqM); Potassium 4.1 mmol/L (3.5-5.1); Sodium 139 mmol/L (137-145); Total Bilirubin 0.7 mg/dL (0.2-1.3); Total Protein 6.8 g/dL (6.3-8.2)
[2022-08-31] MEDS ORDERED: fentaNYL (PF) 50 MCG/1 ML VIAL IVP ONE (13:11)
[2022-08-31] MEDS ORDERED: MIDAZOLAM 2 MG/2 ML VIAL IVP ONE (13:11)
[2022-08-31 13:39] VITALS: RESP 16
--- NOTE | 2022-08-31 14:51 | P.ANPRN ---
Procedure Note - Anesthesia - Nerve Block Performed Bilateral Rectus Abdominis Single Time Out Performed: Yes Date of Procedure: 08/31/22 Procedure Start Time: 13:10 Procedure Stop Time: : Location of Patient: PreOp Indication: Acute Post-Operative Pain, Requested by Surgeon Sedation Type: Sedate with meaningful contact maintained Preparation: Sterile Prep, Sterile Dressing Position: Supine Catheter: None Needle Types: Facet Needle Gauge: 20 Ultrasound used to visualize needle placement: Yes Ultrasound used to observe medication spread: Yes Injectate: 0.5% Ropivacaine (see comment for volume) (15 ml + decadron 2 mg per side) Blood Aspirated: No Pain Paresthesia on Injection Noted: No Resistance on Injection: Normal Image Stored and Saved: Yes Events: Uneventful and Well Tolerated
[2022-08-31] MEDS ORDERED: SUCCINYLCHOLINE CHLORIDE 200 MG/10 ML VIAL IV ONE (15:15)
[2022-08-31] MEDS ORDERED: ROCURONIUM 10 MG/ML (5 ML VIAL) IV ONE (15:15)
[2022-08-31] MEDS ORDERED: fentaNYL (PF) 50 MCG/ML 2 ML AMP ONE (15:15)
[2022-08-31] MEDS ORDERED: LIDOCAINE 2% INJ 20 MG/ML (2 ML VIAL) ONE (15:15)
[2022-08-31] MEDS ORDERED: NEOSTIGMINE 1 MG/ML 10 ML VIAL ONE (15:15)
[2022-08-31] MEDS ORDERED: HYDROmorphone (PF) 1 MG/ML ONE (15:15)
[2022-08-31] MEDS ORDERED: PROPOFOL 10 MG/ML 20 ML VIAL IV ONE (15:15)
[2022-08-31] MEDS ORDERED: DEXAMETHASONE SOD PHOSPHATE 4 MG/ML 1 ML VIAL ONE (15:15)
[2022-08-31] MEDS ORDERED: GLYCOPYRROLATE 0.2 MG/ML 2 ML VIAL ONE (15:15)
[2022-08-31] MEDS ORDERED: MIDAZOLAM 2 MG/2 ML VIAL ONE (15:15)
[2022-08-31] MEDS ORDERED: ROPIVACAINE 5 MG/ML 30 ML VIAL ONE (15:15)
[2022-08-31] MEDS ORDERED: BUPIVACAIN-EPI 0.25%-1:200,000 30 ML VIAL SQ ONE (15:17)
[2022-08-31] MEDS ORDERED: LACTATED RINGERS 1,000 ML IV ONE (16:47)
[2022-08-31] MEDS ORDERED: oxyCODONE-APAP 7.5-325MG 1 EACH TAB PO PRN (17:07)
[2022-08-31] MEDS ORDERED: KETOROLAC 15 MG/ML 1 ML VIAL IVP PRN (17:07)
[2022-08-31 17:08] VITALS: TEMP 97.2
--- NOTE | 2022-08-31 17:17 | P.OP ---
Date of Procedure: 08/31/22 Description of Procedure: SURGEON: MARYBETH PATRICIA MD PREOPERATIVE DIAGNOSES: 1. Urachal cyst with umbilical hernia 2. Asthma 3. Obesity due to excess calories, BMI 32.9 4. Obstructive sleep apnea 5. Generalized anxiety disorder POSTOPERATIVE DIAGNOSES: 1. Initial umbilical hernia with incarceration, 1 cm 2. Asthma 3. Obesity due to excess calories, BMI 32.9 4. Obstructive sleep apnea 5. Generalized anxiety disorder 6. Urachal cyst with umbilical hernia OPERATION: 1. Robotic-assisted da Michelle Xi laparoscopic repair of initial incarcerated umbilical hernia 1 cm without mesh 2. Excision of urachal cyst FINDINGS: 1. Initial incarcerated umbilical hernia, 1 cm with contents of urachal cyst excised ANESTHESIA: General with local, abdominal wall block ESTIMATED BLOOD LOSS: 5 mL. SPECIMENS: Urachal cyst. COMPLICATIONS: None. INDICATIONS: The patient is a 37-year-old male who presents with drainage from the umbilicus from a urachal cyst and initial umbilical hernia. Surgical intervention with laparoscopic versus robotic and open techniques were reviewed. Placement of mesh was also reviewed. Benefits and risks were thoroughly described. Informed consent was obtained. DESCRIPTION OF PROCEDURE: The patient was brought into the operating room and laid in supine position. After general induction, the abdomen had been prepped and draped in standard sterile fashion. Ioban draping was also placed. Prior to incision, a timeout protocol was confirmed with surgical team regarding the patient's name including procedures to be performed. The robot was primed prior to the procedure. A field block using local anesthetic was placed along hernia site including the proposed port sites. Initial incision was made with an #11 blade along the left upper quadrant. A 0 degree 5 mm laparoscopic trocar entry was performed. Diagnostic laparoscopy demonstrated an incarcerated umbilical hernia. Three 8 mm trocars were placed along the left lateral abdominal wall. Placements of the ports were 15 cm from the target anatomy and 9 cm apart. The [employer]i Xi robot was previously primed, prepped and draped then docked along the right side of the patient. I then sat at the robot Da Michelle Xi console where working arms of the robot were scissors, needle airport driver, vessel sealer and graspers placed by the language assistant. Attention was brought to the umbilicus. The peritoneal fat was unroofed and dissected free from the abdominal wall 2 cm superior and 2 cm inferior to the umbilicus. An incarcerated umbilical hernia was identified containing urachal cyst which was excised in total. The incarcerated contents was reduced as the peritoneal fat was cleaned from the abdominal wall. Next, hemostasis was checked with cautery. An accessory laparoscopic 12 mm trocar was placed along the left upper quadrant abdomen by the language assistant. The hernia defect of 1-cm was oversewn using #1 VLOC with fascial imbrication 3. A final endoscopic imaging was obtained. All instruments and pneumoperitoneum were evacuated from the abdominal cavity. The da Michelle Xi robot was undocked from the patient. I re-scrubbed into the case for closure of incisions. Skin was closed in a subcuticular fashion with 4-0 Monocryl. An umbilical dressing using 4 x 4 and Tegaderm was placed. Exofin liquid glue was applied to the skin after cleansing the skin with normal saline and dilute hydrogen peroxide. An abdominal binder was placed. At the end of the procedure, needle, sponge, and instrument count had been verified correct by surgical elastic knitter hand frame. The patient was taken to the postanesthesia care unit in stable condition. Plan - Discharge Summary Discharge Rx Participant: No New Discharge Prescriptions: New Cyclobenzaprine [Flexeril] 10 mg PO TID #30 tab Ibuprofen [Motrin] 600 mg PO Q8HR PRN #30 tab PRN Reason: Pain Acetaminophen Tab [Tylenol Tab] 1,000 mg PO Q6HR PRN #30 tablet PRN Reason: Pain Simethicone [Gas-X] 125 mg PO AC-TID PRN #20 capsule PRN Reason: Pain Continue Multivitamins, Thera [Multivitamin (formulary)] 1 tab PO DAILY Aspirin 81 mg PO DAILY clomiPHENE citrate [Clomid] 50 mg PO MOFR Albuterol Inhaler [Ventolin Hfa Inhaler] 2 puff INHALATION Q6H PRN PRN Reason: Shortness Of Breath Discharge Medication List Multivitamins, Thera [Multivitamin (formulary)] 1 tab PO DAILY 11/14/17 [History] Albuterol Inhaler [Ventolin Hfa Inhaler] 2 puff INHALATION Q6H PRN 08/28/22 [History] Aspirin 81 mg PO DAILY 08/28/22 [History] clomiPHENE citrate [Clomid] 50 mg PO MOFR 08/28/22 [History] Acetaminophen Tab [Tylenol Tab] 1,000 mg PO Q6HR PRN #30 tablet 08/31/22 [Rx] Cyclobenzaprine [Flexeril] 10 mg PO TID #30 tab 08/31/22 [Rx] Ibuprofen [Motrin] 600 mg PO Q8HR PRN #30 tab 08/31/22 [Rx] Simethicone [Gas-X] 125 mg PO AC-TID PRN #20 capsule 08/31/22 [Rx] Follow up Appointment(s)/Referral(s): Marybeth Patricia MD [STAFF PHYSICIAN] - 09/05/22 (TELEHEALTH) Patient Instructions/Handouts: Ventral Hernia Repair (GEN), Laparoscopic Herniorrhaphy (IP), Abdominal Binder (DC), *Surgery [facility] - Managing Your Pain After Surgery Without Opioids Activity/Diet/Wound Care/Special Instructions: DO NOT REMOVE UMBILICAL DRESSING. No lifting for 4 pounds in 4 weeks, Oct 01 Using antibacterial soap. May shower. No bathtub soaks for 2 weeks, Sep 14 Wear abdominal binder daily for comfort except for showering. Use ice along incisions for today to prevent swelling. Discharge Disposition: HOME SELF-CARE
[2022-08-31] MEDS ORDERED: IBUPROFEN 200 MG TAB PO ONE (18:04)
[2022-08-31] MEDS ORDERED: IBUPROFEN 600 MG TAB PO ONE (18:04)
[2022-08-31 18:10] VITALS: BP 142/90; PULSE 72
== END 2022-08-31 18:41 | disposition home or self-care (01) ==
LOC: OR 11:08
PROVIDERS: ATTEND Surgery Plastic and Reconstructive Surgery
DX: K42.0 Umbilical hernia with obstruction, without gangrene (principal); Q64.4 Malformation of urachus; G89.18 Other acute postprocedural pain; G47.33 Obstructive sleep apnea (adult) (pediatric); J45.909 Unspecified asthma, uncomplicated; Z87.891 Personal history of nicotine dependence; E66.09 Other obesity due to excess calories; F41.1 Generalized anxiety disorder; Z68.32 Body mass index [BMI] 32.0-32.9, adult; Z79.82 Long term (current) use of aspirin; Z83.3 Family history of diabetes mellitus
CPT/HCPCS: 49592; 64486; 80053; 85025; J2250; J0330; J1100; J2710; J0690; J2405; J3010 ×2; J1170 ×2; J2795; J2704; J1644; J2001

== ENCOUNTER 2022-11-26 05:28 | Emergency (ER) | payer BC ==
[2022-11-26 05:37] VITALS: BP 140/89; PULSE 78; RESP 18; TEMP 97.7
[2022-11-26] MEDS ORDERED: PROPARACAINE 0.5% OPHTH DROPS 15 ML BTL BOTH EYES STA (05:38)
[2022-11-26] MEDS ORDERED: FLUORESCEIN STRIPS 1 MG STRIP BOTH EYES ONE (05:38)
[2022-11-26] MEDS ORDERED: TOBRAMYCIN 0.3% OPHTH DROPS 5 ML BTL RIGHT EYE STA (05:50)
--- NOTE | 2022-11-26 05:51 | ED ---
General Adult HPI - General Chief complaint: Eye Problems Stated complaint: Right Eye Irritation Time Seen by Provider: 11/26/22 05:38 Source: patient Mode of arrival: ambulatory Limitations: no limitations - History of Present Illness Initial comments: This is a 37-year-old male with no past medical history presented to the emergency department for right eye pain. The patient stated that he woke up around 3:00 the morning with pain to the right eye with redness noted. The patient does were contacts daily and took out his contacts last night and noted the discomfort. The patient came to the emergency department for evaluation and to rule out and make sure that it was not pinkeye. The patient denied any pain in dark rooms denied any blurriness of vision. The patient was resting in bed comfortably. The patient also denied any direct trauma to the eye. - Related Data Home Medications Medication Instructions Recorded Confirmed Multivitamins, Thera [Multivitamin 1 tab PO DAILY 11/14/17 08/28/22 (formulary)] Albuterol Inhaler [Ventolin Hfa 2 puff INHALATION Q6H PRN 08/28/22 08/28/22 Inhaler] Aspirin 81 mg PO DAILY 08/28/22 08/28/22 clomiPHENE citrate [Clomid] 50 mg PO MOFR 08/28/22 08/28/22 Previous Rx's Medication Instructions Recorded Acetaminophen Tab [Tylenol Tab] 1,000 mg PO Q6HR PRN #30 tablet 08/31/22 Cyclobenzaprine [Flexeril] 10 mg PO TID #30 tab 08/31/22 Ibuprofen [Motrin] 600 mg PO Q8HR PRN #30 tab 08/31/22 Simethicone [Gas-X] 125 mg PO AC-TID PRN #20 capsule 08/31/22 Allergies Allergy/AdvReac Type Severity Reaction Status Date / Time No Known Allergies Allergy Verified 08/28/22 08:42 Review of Systems ROS Statement: Those systems with pertinent positive or pertinent negative responses have been documented in the HPI. ROS Other: All systems not noted in ROS Statement are negative. Past Medical History Past Medical History: No Reported History History of Any Multi-Drug Resistant Organisms: None Reported Past Surgical History: Orthopedic Surgery Additional Past Surgical History / Comment(s): Left leg sx Past Psychological History: Anxiety Smoking Status: Current every day smoker General Exam Limitations: no limitations General appearance: alert, in no apparent distress Head exam: Present: atraumatic, normocephalic, normal inspection Eye exam: Present: normal appearance, PERRL, conjunctival injection (Punctate corneal abrasion noted to the right cornea) Pupils: Present: normal accommodation ENT exam: Present: normal exam, normal oropharynx, mucous membranes moist Neck exam: Present: normal inspection, full ROM Respiratory exam: Present: normal lung sounds bilaterally Cardiovascular Exam: Present: regular rate, normal rhythm, normal heart sounds GI/Abdominal exam: Present: soft, normal bowel sounds Extremities exam: Present: normal inspection, full ROM Back exam: Present: normal inspection, full ROM Neurological exam: Present: alert, oriented X3, CN II-XII intact Psychiatric exam: Present: normal affect, normal mood Skin exam: Present: warm, dry Course Vital Signs 11/26/22 05:34 Temperature 97.7 F Pulse Rate 78 Respiratory 18 Rate Blood Pressure 140/89 O2 Sat by Pulse 97 Oximetry Medical Decision Making - Medical Decision Making Was pt. sent in by a medical professional or institution ([facility], PASTE MAKER, urgent care, hospital, or senior living...) When possible be specific @ -No Did you speak to anyone other than the patient for history (EMS, parent, family, police, friend...)? What history was obtained from this source @ -No Did you review nursing and triage notes (agree or disagree)? Why? @ -I reviewed and agree with nursing and triage notes Were old charts reviewed (outside hosp., previous admission, EMS record, old EKG, old radiological studies, urgent care reports/EKG's, senior living records)? Report findings @ -No old charts were reviewed Differential Diagnosis (chest pain, altered mental status, abdominal pain women, abdominal pain men, vaginal bleeding, weakness, fever, dyspnea, syncope, headache, dizziness, GI bleed, back pain, seizure, CVA, palpatations, mental health)? @ -Corneal abrasion, conjunctivitis, acute angle-closure glaucoma EKG interpreted by me (3pts min.). @ -None X-rays interpreted by me (1pt min.). @ -None done CT interpreted by me (1pt min.). @ -None done U/S interpreted by me (1pt. min.). @ -None done What testing was considered but not performed or refused? (CT, X-rays, U/S, labs)? Why? @ -None What meds were considered but not given or refused? Why? @ -None Did you discuss the management of the patient with other professionals (professionals i.e. , PA, PASTE MAKER, lab, RT, psych nurse, oncology social work, furnace keeper, teacher, penal officer, case repairer)? Give summary @ -No Was smoking cessation discussed for >3mins.? @ -No Was critical care preformed (if so, how long)? @ -No Were there social determinants of health that impacted care today? How? (Homelessness, low income, unemployed, alcoholism, drug addiction, tr ansportation, low edu. Level, literacy, decrease access to med. care, retirement, rehab)? @ -No Was there de-escalation of care discussed even if they declined (Discuss DNR or withdrawal of care, Hospice)? DNR status @ -No What co-morbidities impacted this encounter? (DM, HTN, Smoking, COPD, CAD, Cancer, CVA, ARF, Chemo, Hep., AIDS, mental health diagnosis, sleep apnea, morbid obesity)? @ -None Was patient admitted / discharged? Hospital course, mention meds given and route, prescriptions, significant lab abnormalities, going to OR and other pertinent info. @ -The patient was seen and evaluated emergency department. Physical exam, the patient was resting in bed without any acute distress. Vital signs admission were stable. Physical exam findings including forcing staining showed a small corneal abrasion to the right eye. The patient does were contacts and was given tobramycin drops as a single dose emergency department as well as to be taken at home. The patient was advised to take his medication for 5 days and to abstain from contact wearing for the same timeframe. The patient was advised to follow- up with his were care physician or unemployment benefits claims taker for further workup and evaluation. He was also advised to reports to the emergency department. Worse caren pain. The patient was agreeable to this and all his questions were answered. The patient was discharged home in stable condition. Undiagnosed new problem with uncertain prognosis? @ -No Drug Therapy requiring intensive monitoring for toxicity (Heparin, Nitro, Insulin, Cardizem)? @ -No Were any procedures done? @ -No Diagnosis/symptom? @ -Right corneal abrasion Acute, or Chronic, or Acute on Chronic? @ -Acute Uncomplicated (without systemic symptoms) or Complicated (systemic symptoms)? @ -Uncomplicated Side effects of treatment? @ -No Exacerbation, Progression, or Severe Exacerbation? @ -No Poses a threat to life or bodily function? How? (Chest pain, [place], [place], pneumonia, PE, COPD, DKA, ARF, appy, cholecystitis, CVA, Diverticulitis, Homicidal, Suicidal, threat to staff... and all critical care pts) @ -No Disposition Clinical Impression: Corneal abrasion Disposition: HOME SELF-CARE Condition: Stable Instructions (If sedation given, give patient instructions): Abrasion (ED) Additional Instructions: Please take Tobrex eye drops, 2 drops in right eye every 6 hours for 5 days Is patient prescribed a controlled substance at d/c from ED?: No Referrals: None,Stated [Primary Care Provider] - 1-2 days Time of Disposition: 05:50
== END 2022-11-26 06:07 | disposition home or self-care (01) ==
LOC: EC 05:28
DX: S05.01XA Injury of conjunctiva and corneal abrasion without foreign body, right eye, initial encounter (principal); F17.200 Nicotine dependence, unspecified, uncomplicated; X58.XXXA Exposure to other specified factors, initial encounter
CPT/HCPCS: 99283

== ENCOUNTER → 2022-12-13 | Outpatient (CLI) | payer BC ==
[2022-12-14 01:57] LABS: African American GFR (CKD) 108.3 (60.0-200.0); Albumin 4.5 g/dL (3.8-4.9); Albumin/Globulin Ratio 1.94 (1.60-3.17); Anion Gap 10.4 mmol/L (10.00-18.00); BUN/Creat Ratio 10.69 Ratio (12.00-20.00); Blood Urea Nitrogen 10.9 mg/dL (9.0-27.0); Calcium 9.5 mg/dL (8.7-10.3); Carbon Dioxide 28.2 mmol/L (20.0-27.5); Follicle Stimulating Hormone 12.2 mIU/mL; Globulin 2.3 g/dL (1.6-3.3); Luteinizing Hormone 9.1 mIU/mL; Non-African American GFR(CKD) 93.5 (60.0-200.0); Potassium 4.1 mmol/L (3.5-5.5); Total Bilirubin 0.6 mg/dL (0.30-1.20); Total Protein 6.8 g/dL (6.2-8.2)
[2022-12-14 02:11] LABS: Basophils # (A) 0.08 X 10*3/uL (0.00-0.10); Basophils % (A) 1.1 %; Eosinophils % (A) 2.8 %; HCT 43.2 % (39.6-50.0); HGB 14.4 g/dL (13.0-17.0); Immature Grans, Automated 0.1 %; Lymphocytes # (A) 3.08 X 10*3/uL (0.90-5.00); Lymphocytes % (A) 42.7 %; MCH 29.9 pg (27.0-32.0); MCHC 33.3 g/dL (32.0-37.0); MCV 89.8 fL (80.0-97.0); Mean Platelet Volume 9.5 fL (9.5-12.2); Monocytes % (A) 8.3 %; NRBC Per 100 WBC 0 /100 WBCS (0.0-0.0); Neutrophils # (A) 3.25 X 10*3/uL (1.80-7.70); Platelet Count 353 X 10*3/uL (140-440); RBC 4.81 X 10*6/uL (4.40-5.60); RDW 14.2 % (11.5-14.5); WBC 7.22 X 10*3/uL (4.50-10.00)
== END | disposition home or self-care (01) ==
LOC: LABWHC1 15:59
PROVIDERS: ATTEND Internal Medicine
DX: R68.82 Decreased libido (principal)
CPT/HCPCS: 36415; 80053; 83001; 83002; 84270; 84402; 84403; 85025

== ENCOUNTER → 2023-03-05 | Outpatient (CLI) | payer BC ==
[2023-03-05 20:51] LABS: ALT 48 U/L (10-49); AST 32 U/L (14-35); Albumin 4.6 d/dL (3.8-4.9); Albumin/Globulin Ratio 1.92 Ratio (1.60-3.17); Alkaline Phosphatase 56 U/L (41-126); BUN/Creat Ratio 12.89 Ratio (12.00-20.00); Blood Urea Nitrogen 11.6 mg/dL (9.0-27.0); Calcium 9.5 mg/dL (8.7-10.3); Carbon Dioxide 27.5 mmol/L (21.6-31.8); Chloride 104 mmol/L (96-109); Globulin 2.4 d/dL (1.6-3.3); Glucose 84 mg/dL (70-110); Potassium 4.6 mmol/L (3.5-5.5); Sodium 142 mmol/L (135-145); Total Bilirubin 0.4 mg/dL (0.3-1.2)
[2023-03-05 21:39] LABS: Basophils # (A) 0.07 X 10*3/uL (0.00-0.10); Basophils % (A) 0.9 %; Eosinophils # (A) 0.23 X 10*3/uL (0.04-0.35); Eosinophils % (A) 2.9 %; HCT 43.8 % (39.6-50.0); HGB 14.6 d/dL (13.0-17.0); Lymphocytes # (A) 2.87 X 10*3/uL (0.90-5.00); MCH 29.6 pg (27.0-32.0); MCHC 33.3 d/dL (32.0-37.0); MCV 88.7 FL (80.0-97.0); Mean Platelet Volume 10.2 FL (9.5-12.2); Monocytes % (A) 7.5 %; NRBC Per 100 WBC 0 X 10*3/uL (0.00-0.01); Neutrophils # (A) 4.19 X 10*3/uL (1.80-7.70); Neutrophils % (A) 52.4 %; Platelet Count 360 X 10*3/uL (140-440); RBC 4.94 X 10*6/uL (4.40-5.60); RDW 14.6 % (11.5-14.5); WBC 7.98 X 10*3/uL (4.50-10.00)
== END | disposition home or self-care (01) ==
LOC: LABWHC1 15:03
PROVIDERS: ATTEND Internal Medicine
DX: E29.1 Testicular hypofunction (principal)
CPT/HCPCS: 36415; 80053; 84402; 84403; 85025

== ENCOUNTER 2023-03-24 16:03 | Emergency (ER) | payer BC ==
[2023-03-24 16:16] VITALS: BP 147/95; PULSE 89; RESP 18; TEMP 99.3
--- NOTE | 2023-03-24 16:42 | ED ---
General Adult HPI - General Chief complaint: Extremity Injury, Lower Stated complaint: R Knee Cyst Time Seen by Provider: 03/24/23 16:21 Source: patient Mode of arrival: ambulatory Limitations: no limitations - History of Present Illness Initial comments: 38-year-old male presenting with chief complaint of red painful spot to the right knee. States that this is been worsening for a few days. No injury or trauma. No fevers or chills. As 2 small pustules are present. No joint swelling or erythema. No induration or warmth. At rest pain is minimal, pain worsens with weightbearing. - Related Data Home Medications Medication Instructions Recorded Confirmed Multivitamins, Thera [Multivitamin 1 tab PO DAILY 11/14/17 08/28/22 (formulary)] Albuterol Inhaler [Ventolin Hfa 2 puff INHALATION Q6H PRN 08/28/22 08/28/22 Inhaler] Aspirin 81 mg PO DAILY 08/28/22 08/28/22 clomiPHENE citrate [Clomid] 50 mg PO MOFR 08/28/22 08/28/22 Previous Rx's Medication Instructions Recorded Acetaminophen Tab [Tylenol Tab] 1,000 mg PO Q6HR PRN #30 tablet 08/31/22 Cyclobenzaprine [Flexeril] 10 mg PO TID #30 tab 08/31/22 Ibuprofen [Motrin] 600 mg PO Q8HR PRN #30 tab 08/31/22 Simethicone [Gas-X] 125 mg PO AC-TID PRN #20 capsule 08/31/22 Cephalexin [Keflex] 500 mg PO Q6HR 5 Days #20 cap 03/24/23 Allergies Allergy/AdvReac Type Severity Reaction Status Date / Time No Known Allergies Allergy Verified 08/28/22 08:42 Review of Systems ROS Statement: Those systems with pertinent positive or pertinent negative responses have been documented in the HPI. ROS Other: All systems not noted in ROS Statement are negative. Past Medical History Past Medical History: No Reported History History of Any Multi-Drug Resistant Organisms: None Reported Past Surgical History: Orthopedic Surgery Additional Past Surgical History / Comment(s): Left leg sx, right thumb tendon repair Past Psychological History: Anxiety Smoking Status: Former smoker Past Alcohol Use History: Occasional Past Drug Use History: None Reported General Exam Limitations: no limitations General appearance: alert, in no apparent distress Head exam: Present: atraumatic, normocephalic, normal inspection Eye exam: Present: normal appearance, EOMI Neck exam: Present: normal inspection, full ROM Respiratory exam: Absent: respiratory distress Extremities exam: Present: normal inspection, full ROM. Absent: tenderness Neurological exam: Present: alert, oriented X3, CN II-XII intact Psychiatric exam: Present: normal affect, normal mood Skin exam: Present: warm, dry, intact, other (Small patch of erythema with 2 small pustules present just inferior to the right knee) Course Vital Signs 03/24/23 16:13 Temperature 99.3 F Pulse Rate 89 Respiratory 18 Rate Blood Pressure 147/95 O2 Sat by Pulse 96 Oximetry Medical Decision Making - Medical Decision Making Was pt. sent in by a medical professional or institution (, PA, TILE FITTER, urgent care, hospital, or [facility]...) When possible be specific @ -No Did you speak to anyone other than the patient for history (EMS, parent, family, police, friend...)? What history was obtained from this source @ -No Did you review nursing and triage notes (agree or disagree)? Why? @ -I reviewed and agree with nursing and triage notes Were old charts reviewed (outside hosp., previous admission, EMS record, old EKG, old radiological studies, urgent care reports/EKG's, [facility] records)? Report findings @ -No old charts were reviewed Differential Diagnosis (chest pain, altered mental status, abdominal pain women, abdominal pain men, vaginal bleeding, weakness, fever, dyspnea, syncope, headache, dizziness, GI bleed, back pain, seizure, CVA, palpatations, mental health, musculoskeletal)? @ -Differential includes cellulitis, abscess, ALLERGIC reaction, this is not an all inclusive list EKG interpreted by me (3pts min.). @ -As above X-rays interpreted by me (1pt min.). @ -None done CT interpreted by me (1pt min.). @ -None done U/S interpreted by me (1pt. min.). @ -None done What testing was considered but not performed or refused? (CT, X-rays, U/S, labs)? Why? @ -None What meds were considered but not given or refused? Why? @ -None Did you discuss the management of the patient with other professionals (professionals i.e. , PA, TILE FITTER, lab, RT, psych nurse, child protective services social worker, broth mixer, teacher, control officer, rehabilitation case coordinator)? Give summary @ -No Was smoking cessation discussed for >3mins.? @ -No Was critical care preformed (if so, how long)? @ -No Were there social determinants of health that impacted care today? How? (Homelessness, low income, unemployed, alcoholism, drug addiction, transpor tation, low edu. Level, literacy, decrease access to med. care, usp, rehab)? @ -No Was there de-escalation of care discussed even if they declined (Discuss DNR or withdrawal of care, Hospice)? DNR status @ -No What co-morbidities impacted this encounter? (DM, HTN, Smoking, COPD, CAD, Cancer, CVA, ARF, Chemo, Hep., AIDS, mental health diagnosis, sleep apnea, morbid obesity)? @ -None Was patient admitted / discharged? Hospital course, mention meds given and route, prescriptions, significant lab abnormalities, going to OR and other pertinent info. @ -38-year-old male presenting with chief complaint of red painful bump below the right knee. Physical examination there is no swelling or redness to the knee joint. There appears to be to pustules just below the right knee. There is a small amount of pus was expressed. Patient is started on Keflex. Follow-up with PCP. Report back to ER with any new or worsening symptoms. Discussed return parameters and answered all questions. Patient conveyed verbal understanding and agreed to the plan. I discussed this case in detail with my attending Dr. Varela Undiagnosed new problem with uncertain prognosis? @ -No Drug Therapy requiring intensive monitoring for toxicity (Heparin, Nitro, Insulin, Cardizem)? @ -No Were any procedures done? @ -No Diagnosis/symptom? @ -ingrown hair Acute, or Chronic, or Acute on Chronic? @ -acute Uncomplicated (without systemic symptoms) or Complicated (systemic symptoms)? @ -Uncomplicated Side effects of treatment? @ -No Exacerbation, Progression, or Severe Exacerbation? @ -No Poses a threat to life or bodily function? How? (Chest pain, [place], [place], pneumonia, PE, COPD, DKA, ARF, appy, cholecystitis, CVA, Diverticulitis, Homicidal, Suicidal, threat to staff... and all critical care pts) @ -No Disposition Clinical Impression: Ingrown hair Disposition: HOME SELF-CARE Condition: Good Instructions (If sedation given, give patient instructions): Cellulitis (ED) Additional Instructions: Follow-up with PCP. Report back to ER if any new or worsening symptoms. Take medication as prescribed. Prescriptions: Cephalexin [Keflex] 500 mg PO Q6HR 5 Days #20 cap Is patient prescribed a controlled substance at d/c from ED?: No Referrals: None,Stated [Primary Care Provider] - 1-2 days Ellen Gann MD [STAFF PHYSICIAN] - 1-2 days Time of Disposition: 16:42
== END 2023-03-24 16:52 | disposition home or self-care (01) ==
LOC: EC 16:03
DX: L73.1 Pseudofolliculitis barbae (principal); Z79.82 Long term (current) use of aspirin; Z86.59 Personal history of other mental and behavioral disorders; Z87.891 Personal history of nicotine dependence
CPT/HCPCS: 99283

== ENCOUNTER → 2023-03-26 | Outpatient (CLI) | payer BC ==
--- NOTE | 2023-03-26 14:08 | US ---
EXAMINATION TYPE: US venous doppler duplex LE RT DATE OF EXAM: 03/26/2023 1:22 PM COMPARISON: NONE CLINICAL INDICATION: Male, 38 years old with history of L03.115 CELLULITIS, rt leg pain and swelling, no prev dvt SIDE PERFORMED: right TECHNIQUE: The lower extremity deep venous system is examined utilizing real time linear array sonog svetlana with graded compression, doppler sonography and color-flow sonography. VESSELS IMAGED: Common Femoral Vein Deep Femoral Vein Greater Saphenous Vein * Femoral Vein Popliteal Vein Small Saphenous Vein * Proximal Calf Veins (* superficial vessels) Right Leg: neg for RLE dvt Several attempts to call office with no answer; no number on order. Patient notified of negative res ults and that report will be at office for his provider to review. IMPRESSION: 1. Right lower extremity ultrasound negative for deep venous thrombosis.
== END | disposition home or self-care (01) ==
LOC: RADUSWWP 13:18
PROVIDERS: ATTEND Dermatology MOHS-Micrographic Surgery
DX: I82.401 Acute embolism and thrombosis of unspecified deep veins of right lower extremity (principal); L03.115 Cellulitis of right lower limb

== ENCOUNTER → 2023-06-27 | Outpatient (CLI) | payer OTHER ==
--- NOTE | 2023-06-29 12:12 | MR ---
EXAMINATION TYPE: MR brain wo con DATE OF EXAM: 06/27/2023 5:24 PM CLINICAL INDICATION:Male, 38 years old with history of G43.009 MIGRAINE WO AURA; PHH, Migraine COMPARISON: None. TECHNIQUE: Multi planar, multi sequence imaging was performed through the brain including: T1, T2, In version recovery, Diffusion weighted imaging, and gradient echo imaging. No gadolinium was given. FINDINGS: The shin-white junctions, ventricular system, and cisterns appear unremarkable. Midline structures sh ow no abnormality. Diffusion-weighted imaging shows no evidence of restricted diffusion. The suscepti bility weighted images do not reveal any evidence for micro-hemorrhage. The bone marrow signal is within normal limits. Paranasal sinuses and mastoid air cells: No significant paranasal sinus disease. Trace high T2 signal within the right mastoid air cells. Visualized orbits: Orbital contents are intact. IMPRESSION: No evidence of intracranial mass or acute/subacute infarct.
== END | disposition home or self-care (01) ==
LOC: RADMRIMAIN 16:41
PROVIDERS: ATTEND Psychiatry & Neurology Neurology
DX: G43.009 Migraine without aura, not intractable, without status migrainosus (principal)
CPT/HCPCS: 70551

== ENCOUNTER → 2023-07-02 | Outpatient (CLI) | payer OTHER ==
[2023-07-03 02:26] LABS: Basophils # (A) 0.07 X 10*3/uL (0.00-0.10); Basophils % (A) 0.9 %; Eosinophils # (A) 0.19 X 10*3/uL (0.04-0.35); Eosinophils % (A) 2.5 %; HCT 45.9 % (39.6-50.0); HGB 15.4 g/dL (13.0-17.0); Lymphocytes # (A) 2.72 X 10*3/uL (0.90-5.00); Lymphocytes % (A) 35.6 %; MCH 29.8 pg (27.0-32.0); MCHC 33.6 g/dL (32.0-37.0); Mean Platelet Volume 9.5 FL (9.5-12.2); Monocytes % (A) 9.2 %; NRBC Per 100 WBC 0 X 10*3/uL (0.00-0.01); Neutrophils # (A) 3.94 X 10*3/uL (1.80-7.70); Neutrophils % (A) 51.5 %; Platelet Count 379 X 10*3/uL (140-440); RBC 5.16 X 10*6/uL (4.40-5.60); RDW 14.7 % (11.5-14.5); WBC 7.64 X 10*3/uL (4.50-10.00)
[2023-07-03 02:38] LABS: ALT 44 U/L (10-49); AST 37 U/L (14-35); Albumin 4.5 g/dL (3.8-4.9); Albumin/Globulin Ratio 1.88 Ratio (1.60-3.17); Alkaline Phosphatase 49 U/L (41-126); BUN/Creat Ratio 14.11 Ratio (12.00-20.00); Blood Urea Nitrogen 12.7 mg/dL (9.0-27.0); Calcium 9.6 mg/dL (8.7-10.3); Chloride 103 mmol/L (96-109); Globulin 2.4 g/dL (1.6-3.3); Glucose 96 mg/dL (70-110); Potassium 4.6 mmol/L (3.5-5.5); Sodium 141 mmol/L (135-145); Total Bilirubin 0.5 mg/dL (0.3-1.2); Total Protein 6.9 g/dL (6.2-8.2)
== END | disposition home or self-care (01) ==
LOC: LABWHC1 15:44
PROVIDERS: ATTEND Internal Medicine
DX: E29.1 Testicular hypofunction (principal)
CPT/HCPCS: 36415; 80053; 84402; 84403; 85025

== ENCOUNTER → 2024-01-25 | Outpatient (CLI) | payer BC ==
[2024-01-26 02:01] LABS: Basophils % (A) 1.4 %; Eosinophils # (A) 0.24 X 10*3/uL (0.04-0.35); Eosinophils % (A) 3.3 %; HCT 46.1 % (39.6-50.0); HGB 15.7 g/dL (13.0-17.0); Lymphocytes # (A) 2.38 X 10*3/uL (0.90-5.00); Lymphocytes % (A) 32.5 %; MCH 30.1 pg (27.0-32.0); MCHC 34.1 g/dL (32.0-37.0); MCV 88.3 FL (80.0-97.0); Mean Platelet Volume 9.5 FL (9.5-12.2); Monocytes # (A) 0.74 X 10*3/uL (0.20-1.00); Monocytes % (A) 10.1 %; NRBC Per 100 WBC 0 X 10*3/uL (0.00-0.01); Neutrophils # (A) 3.84 X 10*3/uL (1.80-7.70); Neutrophils % (A) 52.4 %; Platelet Count 464 X 10*3/uL (140-440); RBC 5.22 X 10*6/uL (4.40-5.60); RDW 15.1 % (11.5-14.5); WBC 7.32 X 10*3/uL (4.50-10.00)
[2024-01-26 02:57] LABS: ALT 28 U/L (10-49); AST 26 U/L (14-35); Albumin 4.4 g/dL (3.8-4.9); Albumin/Globulin Ratio 1.91 Ratio (1.60-3.17); Alkaline Phosphatase 51 U/L (41-126); BUN/Creat Ratio 9.67 Ratio (12.00-20.00); Blood Urea Nitrogen 11.6 mg/dL (9.0-27.0); Calcium 9.2 mg/dL (8.7-10.3); Carbon Dioxide 22.4 mmol/L (21.6-31.8); Chloride 104 mmol/L (96-109); Globulin 2.3 g/dL (1.6-3.3); Glucose 97 mg/dL (70-110); Potassium 4.4 mmol/L (3.5-5.5); Sodium 141 mmol/L (135-145); Total Bilirubin 0.4 mg/dL (0.3-1.2); Total Protein 6.7 g/dL (6.2-8.2)
== END | disposition home or self-care (01) ==
LOC: LABWHC1 14:59
PROVIDERS: ATTEND Internal Medicine
DX: E29.1 Testicular hypofunction (principal)
CPT/HCPCS: 36415; 80053; 82040; 84270; 84403; 85025

== ENCOUNTER → 2024-08-19 | Outpatient (CLI) | payer BC ==
[2024-08-20 02:40] LABS: HCT 46.4 % (39.6-50.0); HGB 16.3 g/dL (13.0-17.0); MCH 30.1 pg (27.0-32.0); MCHC 35.1 g/dL (32.0-37.0); MCV 85.8 FL (80.0-97.0); NRBC Per 100 WBC 0 X 10*3/uL (0.00-0.01); Platelet Count 411 X 10*3/uL (140-440); RBC 5.41 X 10*6/uL (4.40-5.60); RDW 13.3 % (11.5-14.5); WBC 8.49 X 10*3/uL (4.50-10.00)
== END | disposition home or self-care (01) ==
LOC: LABWHC1 15:38
PROVIDERS: ATTEND Physician Assistant Medical
DX: E29.1 Testicular hypofunction (principal)
CPT/HCPCS: 36415; 84402; 84403; 85027

== ENCOUNTER → 2024-12-19 | Outpatient (CLI) | payer BC ==
[2024-12-19 10:40] LABS: Basophils # (A) 0.11 X 10*3/uL (0.00-0.10); Basophils % (A) 0.9 %; Eosinophils # (A) 0.38 X 10*3/uL (0.04-0.35); Eosinophils % (A) 3.1 %; HCT 46.5 % (39.6-50.0); HGB 15.9 g/dL (13.0-17.0); Lymphocytes # (A) 3.27 X 10*3/uL (0.90-5.00); Lymphocytes % (A) 26.8 %; MCHC 34.2 g/dL (32.0-37.0); MCV 87.7 FL (80.0-97.0); Mean Platelet Volume 9.4 FL (9.5-12.2); Monocytes # (A) 0.97 X 10*3/uL (0.20-1.00); Monocytes % (A) 7.9 %; NRBC Per 100 WBC 0 X 10*3/uL (0.00-0.01); Neutrophils # (A) 7.44 X 10*3/uL (1.80-7.70); Platelet Count 426 X 10*3/uL (140-440); RDW 13.4 % (11.5-14.5); WBC 12.21 X 10*3/uL (4.50-10.00)
== END | disposition home or self-care (01) ==
LOC: LABWHC1 07:27
PROVIDERS: ATTEND Internal Medicine
DX: E29.1 Testicular hypofunction (principal)
CPT/HCPCS: 36415; 84402; 84403; 85025